=== PATIENT | male | born 1960 | race Caucasian/White ===

== ENCOUNTER 2017-11-26 00:24 | Emergency (ER) | payer OTHER, SELFPAY | END 2017-11-26 01:18 | disposition home or self-care (01) | PROVIDERS: Emergency Provider Emergency Medicine; PCP Family Medicine; Visit Provider Emergency Medicine | DX: S01.01XA Laceration without foreign body of scalp, initial encounter (principal); W19.XXXA Unspecified fall, initial encounter | CPT/HCPCS: 12004; 90471; 99283; 90715 ==

== ENCOUNTER 2019-02-10 09:54 | Emergency (ER) | payer OTHER, SELFPAY ==
[2019-02-10 10:02] VITALS: BP 142/101; PULSE 90; RESP 16; TEMP 36.7; O2SAT 97; BMI 26.6
--- NOTE | 2019-02-10 10:02 | DI.RAD.S_ITS ---
PROCEDURE: XR KNEE LT 3V INDICATIONS: left knee pain TECHNIQUE: 3 views of the knee were acquired. COMPARISON: None. FINDINGS: Bones: No fractures or dislocations. No suspicious bony lesions. Soft tissues: No joint effusion. No suspicious soft tissue calcifications. Prominent prepatellar soft tissue edema is evident. IMPRESSION: 1. No acute left knee fracture. 2. Prominent prepatellar soft tissue edema. Dictated by: Cuong Menjivar M.D. on 02/10/2019 at 9:33 Approved by: Cuong Menjivar M.D. on 02/10/2019 at 9:34
[2019-02-10 10:30] VITALS: BP 126/78; PULSE 78; RESP 14; O2SAT 96
--- NOTE | 2019-02-10 11:19 | ED.LOWEXIN ---
HPI - Extremity Injury (Lower) <MILO Foster - Last Filed: 02/10/19 12:30> General Chief Complaint: Extremity Injury, Lower Stated Complaint: Swollen knee Time Seen by Provider: 02/10/19 11:02 Source: patient and family Mode of arrival: ambulatory Limitations: no limitations History of Present Illness HPI Narrative: The patient is a 58-year-old male current smoker who presents with his . He has a history of bursitis. He presents with a chief complaint of left knee swelling. 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 He states his knee has been hurting increasingly over the past few days and noticed swelling over his kneecap over the past 2 days. states there was slight overlying erythema prior, but none currently. Patient denies any fevers nausea vomiting or diarrhea. He has history of a meniscus injury but not sure which knee. He states he has been golfing recently but does not remember any trauma or falls. He denies any chest pain shortness of breath fever nausea vomiting or diarrhea. Related Data Previous Rx's Medication Instructions Recorded ketorolac 10 mg PO TID PRN #14 tab 02/10/19 Allergies Allergy/AdvReac Type Severity Reaction Status Date / Time Penicillins Allergy Verified 02/10/19 10:02 Review of Systems <MILO Foster - Last Filed: 02/10/19 12:30> Review of Systems GENERAL: Denies chills, fatigue, malaise, fever, sweats. HEENT: Denies sinus pain, ear pain, sore throat, difficulty swallowing, dizziness. RESPIRATORY: Denies dyspnea, cough, wheezing, hemoptysis, sputum. CARDIOVASCULAR: Denies chest pain, palpitations, orthopnea, edema, GASTROINTESTINAL: Denies nausea, vomiting, abdominal pain, diarrhea, constipation, melena. : Denies dysuria, frequency, incontinence, hematuria, urinary retention. MUSCULOSKELETAL: See HPI SKIN: See HPI NEUROLOGIC: Denies weakness, headache, numbness, change in speech, confusion, seizures, incoordination. PSYCHIATRIC: No concerning psychosocial issues. 12 point review of systems is negative except for those stated above PFSH <MILO Foster - Last Filed: 02/10/19 12:30> Medical History (Updated 02/10/19 @ 11:26 by MILO Foster) History of bursitis (Acute) Social History Smoking Status: Current every day smoker Social History Smoking Status: Current every day smoker Exam <MILO Foster - Last Filed: 02/10/19 12:30> Narrative Exam Narrative: GENERAL: This is a well-nourished, well-developed patient, no acute distress HEAD: Atraumatic. Normocephalic. No temporal or scalp tenderness. EYES: Pupils equal round and reactive. Extraocular motions intact. No scleral icterus. No injection or drainage. ENT: Nose without bleeding, purulent drainage or septal hematoma. Throat without erythema, tonsillar hypertrophy or exudate. Uvula midline. Airway patent. CARDIOVASCULAR: Regular rate and rhythm RESPIRATORY: No cough. No increased respiratory effort. No accessory muscle use. GASTROINTESTINAL: Abdomen soft, non-tender, nondistended. No hepato-splenomegaly, or palpable masses. No guarding. EXTREMITIES: Prepatellar swelling noted on the left knee. Negative varus valgus Estella posterior and anterior drawer test. Positive pedal pulse left foot. BACK: Nontender without deformity or crepitance. No flank tenderness. NEURO: AOx3. SKIN: No erythema or ecchymosis noted left knee. Initial Vital Signs Initial Vital Signs: Vital Signs Temperature 98.0 F 02/10/19 10:02 Pulse Rate 90 02/10/19 10:02 Respiratory Rate 16 02/10/19 10:02 Blood Pressure 142/101 H 02/10/19 10:02 Pulse Oximetry 97 02/10/19 10:02 <Divya Stover DO - Last Filed: 02/10/19 19:03> Initial Vital Signs Initial Vital Signs: Vital Signs Temperature 98.0 F 02/10/19 10:02 Pulse Rate 90 02/10/19 10:02 Respiratory Rate 16 02/10/19 10:02 Blood Pressure 142/101 H 02/10/19 10:02 Pulse Oximetry 97 02/10/19 10:02 Procedures <MILO Foster - Last Filed: 02/10/19 12:30> Orthopedic Splinting/Casting Injury #1: Side: left Lower Extremity Injury Location: knee Lower Extremity Immobilizer: Gopal wrap Post splinting neuro exam: intact Post splinting vascular exam: intact Placed by: Nursing Course <MILO Foster - Last Filed: 02/10/19 12:30> Orders Ordered: ED Orders 02/10/19 10:02 XR knee LT 3V Stat Vital Signs - 8 hr 02/10/19 10:02 02/10/19 10:30 Temperature 98.0 F Pulse Rate 90 78 Respiratory Rate 16 14 Blood Pressure 142/101 H Blood Pressure [Left Arm] 126/78 Pulse Oximetry 97 96 <Divya Stover DO - Last Filed: 02/10/19 19:03> Orders Ordered: ED Orders 02/10/19 10:02 XR knee LT 3V Stat Vital Signs - 8 hr 02/10/19 10:02 02/10/19 10:30 Temperature 98.0 F Pulse Rate 90 78 Respiratory Rate 16 14 Blood Pressure 142/101 H Blood Pressure [Left Arm] 126/78 Pulse Oximetry 97 96 MDM - Extremity Injury (Lower) <MILO Foster - Last Filed: 02/10/19 12:30> Imaging Data Knee x-ray: Radiologist's impression: [place] [address] XRay Report Signed Patient: Keith Frazier [facility]#: [id number] : 1960Acct:[id number] Age/Sex: 58 / MDate of Service: 02/10/19 Loc: ED Accession Number: [id number] Procedure: XR knee LT 3V Ordering Provider: Divya Stover D.O. PROCEDURE: XR KNEE LT 3V INDICATIONS: left knee pain TECHNIQUE: 3 views of the knee were acquired. COMPARISON: None. FINDINGS: Bones: No fractures or dislocations. No suspicious bony lesions. Soft tissues: No joint effusion. No suspicious soft tissue calcifications. Prominent prepatellar soft tissue edema is evident. IMPRESSION: 1. No acute left knee fracture. 2. Prominent prepatellar soft tissue edema. Dictated by: Cuong Menjivar M.D. on 02/10/2019 at 9:33 Approved by: Cuong Menjivar M.D. on 02/10/2019 at 9:34 MDM Narrative Medical decision making narrative: The patient is a 58-year-old male who presents with a chief complaint of knee pain. He has no fracture on exam. Exam is consistent with bursitis, which correlates with his history. I discussed at length anti-inflammatories rest Gopal wrap etc. Discussed not working well on knees without any protection. Encouraged follow-up with PCP. Patient state understanding and all questions on discharge. They state they have full contact information for [facility]. Discussed coming back to the ER for any acute concerns. Discharge Plan Departure Patient Disposition: Home Clinical Impression: Bursitis Qualifiers: Bursitis location: knee Knee bursitis location: unspecified Laterality: left Qualified Code(s): M70.52 - Other bursitis of knee, left knee Discharge Date/Time: 02/10/19 11:25 Interventions: ED Discharge Assessment Last Done: 02/10/19 11:25 Instructions: Bursitis (Alternative Therapy), DI for Bursitis Activity Restrictions/Additional Instructions: Your x-ray shows no fracture. Your exam correlates with bursitis. Please continue to apply ice and use anti-inflammatories. I have given you a prescription of Toradol. Please do not combine with other anti-inflammatory such as Aleve. Please follow up with primary care provider. Please come back to emergency department for any acute concerns such as chest pain, shortness of breath. Please monitor for fever, decreased range of motion or other signs of infection. Prescriptions: New ketorolac 10 mg tablet 10 mg PO TID PRN (Reason: pain) Qty: 14 RF: 0 Referrals: Swathi Ware MD [Primary Care Provider] - <Divya Stover DO - Last Filed: 02/10/19 19:03> [facility] Att[facility]: I was immediately available in the department for consultation. This documentation has been reviewed and I agree with assessment and plan. Supervised by Divya Stover DO
--- NOTE | 2019-02-10 11:26 | ED_ITS ---
HPI - Extremity Injury (Lower) <MILO Foster - Last Filed: 02/10/19 12:30> General Chief Complaint: Extremity Injury, Lower Stated Complaint: Swollen knee Time Seen by Provider: 02/10/19 11:02 Source: patient and family Mode of arrival: ambulatory Limitations: no limitations History of Present Illness HPI Narrative: The patient is a 58-year-old male current smoker who presents wit h his . He has a history of bursitis. He presents with a chief complaint of left knee swelling. 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 He states his knee has been hurting increasingly over the past few days and noticed swelling over his kneecap over the past 2 days. states there was slight overlying erythema prior, but none currently. Patient denies any fevers nausea vomiting or diarrhea. He has history of a meniscus injury but not sure which knee. He states he has been golfing recently but does not remember any trauma or falls. He denies any chest pain shortness of breath fever nausea vomiting or diarrhea. Related Data Previous Rx's Medication Instructions Recorded ketorolac 10 mg PO TID PRN #14 tab 02/10/19 Allergies Allergy/AdvReac Type Severity Reaction Status Date / Time Penicillins Allergy Verified 02/10/19 10:02 Review of Systems <MILO Foster - Last Filed: 02/10/19 12:30> Review of Systems GENERAL: Denies chills, fatigue, malaise, fever, sweats. HEENT: Denies sinus pain, ear pain, sore throat, difficulty swallowing, dizziness. RESPIRATORY: Denies dyspnea, cough, wheezing, hemoptysis, sputum. CARDIOVASCULAR: Denies chest pain, palpitations, orthopnea, edema, GASTROINTESTINAL: Denies nausea, vomiting, abdominal pain, diarrhea, constipation, melena. : Denies dysuria, frequency, incontinence, hematuria, urinary retention. MUSCULOSKELETAL: See HPI SKIN: See HPI NEUROLOGIC: Denies weakness, headache, numbness, change in speech, confusion, seizures, incoordination. PSYCHIATRIC: No concerning psychosocial issues. 12 point review of systems is negative except for those stated above PFSH <MILO Foster - Last Filed: 02/10/19 12:30> Medical History (Updated 02/10/19 @ 11:26 by MILO Foster) History of bursitis (Acute) Social History Smoking Status: Current every day smoker Social History Smoking Status: Current every day smoker Exam <MILO Foster - Last Filed: 02/10/19 12:30> Narrative Exam Narrative: GENERAL: This is a well-nourished, well-developed patient, no acute distress HEAD: Atraumatic. Normocephalic. No temporal or scalp tenderness. EYES: Pupils equal round and reactive. Extraocular motions intact. No scleral icterus. No injection or drainage. ENT: Nose without bleeding, purulent drainage or septal hematoma. Throat without erythema, tonsillar hypertrophy or exudate. Uvula midline. Airway patent. CARDIOVASCULAR: Regular rate and rhythm RESPIRATORY: No cough. No increased respiratory effort. No accessory muscle use. GASTROINTESTINAL: Abdomen soft, non-tender, nondistended. No hepato- splenomegaly, or palpable masses. No guarding. EXTREMITIES: Prepatellar swelling noted on the left knee. Negative varus valgus Estella posterior and anterior drawer test. Positive pedal pulse left foot. BACK: Nontender without deformity or crepitance. No flank tenderness. NEURO: AOx3. SKIN: No erythema or ecchymosis noted left knee. Initial Vital Signs Initial Vital Signs: Vital Signs Temperature 98.0 F 02/10/19 10:02 Pulse Rate 90 02/10/19 10:02 Respiratory Rate 16 02/10/19 10:02 Blood Pressure 142/101 H 02/10/19 10:02 Pulse Oximetry 97 02/10/19 10:02 <Divya Stover DO - Last Filed: 02/10/19 19:03> Initial Vital Signs Initial Vital Signs: Vital Signs Temperature 98.0 F 02/10/19 10:02 Pulse Rate 90 02/10/19 10:02 Respiratory Rate 16 02/10/19 10:02 Blood Pressure 142/101 H 02/10/19 10:02 Pulse Oximetry 97 02/10/19 10:02 Procedures <MILO Foster - Last Filed: 02/10/19 12:30> Orthopedic Splinting/Casting Injury #1: Side: left Lower Extremity Injury Location: knee Lower Extremity Immobilizer: Gopal wrap Post splinting neuro exam: intact Post splinting vascular exam: intact Placed by: Nursing Course <MILO Foster - Last Filed: 02/10/19 12:30> Orders Ordered: ED Orders 02/10/19 10:02 XR knee LT 3V Stat Vital Signs - 8 hr 02/10/19 10:02 02/10/19 10:30 Temperature 98.0 F Pulse Rate 90 78 Respiratory Rate 16 14 Blood Pressure 142/101 H Blood Pressure [Left Arm] 126/78 Pulse Oximetry 97 96 <Divya Stover DO - Last Filed: 02/10/19 19:03> Orders Ordered: ED Orders 02/10/19 10:02 XR knee LT 3V Stat Vital Signs - 8 hr 02/10/19 10:02 02/10/19 10:30 Temperature 98.0 F Pulse Rate 90 78 Respiratory Rate 16 14 Blood Pressure 142/101 H Blood Pressure [Left Arm] 126/78 Pulse Oximetry 97 96 MDM - Extremity Injury (Lower) <MILO Foster - Last Filed: 02/10/19 12:30> Imaging Data Knee x-ray: Radiologist's impression: [place] [address] XRay Report Signed Patient: Keith Frazier AMR#: [id number] : 1960Acct:[id number] Age/Sex: 58 / MDate of Service: 02/10/19 Loc: ED Accession Number: [id number] Procedure: XR knee LT 3V Ordering Provider: Divya Stover D.O. PROCEDURE: XR KNEE LT 3V INDICATIONS: left knee pain TECHNIQUE: 3 views of the knee were acquired. COMPARISON: None. FINDINGS: Bones: No fractures or dislocations. No suspicious bony lesions. Soft tissues: No joint effusion. No suspicious soft tissue calcifications. Prominent prepatellar soft tissue edema is evident. IMPRESSION: 1. No acute left knee fracture. 2. Prominent prepatellar soft tissue edema. Dictated by: Cuong Menjivar M.D. on 02/10/2019 at 9:33 Approved by: Cuong Menjivar M.D. on 02/10/2019 at 9:34 MDM Narrative Medical decision making narrative: The patient is a 58-year-old male who presents with a chief complaint of knee pain. He has no fracture on exam. Exam is consistent with bursitis, which correlates with his history. I discussed at length anti-inflammatories rest Gopal wrap etc. Discussed not working well on knees without any protection. Encouraged follow-up with PCP. Patient state understanding and all questions on discharge. They state they have full contact information for [facility]. Discussed coming back to the ER for any acute concerns. Discharge Plan Departure Patient Disposition: Home Clinical Impression: Bursitis Qualifiers: Bursitis location: knee Knee bursitis location: unspecified Laterality: left Qualified Code(s): M70.52 - Other bursitis of knee, left knee Discharge Date/Time: 02/10/19 11:25 Interventions: ED Discharge Assessment Last Done: 02/10/19 11:25 Instructions: Bursitis (Alternative Therapy), DI for Bursitis Activity Restrictions/Additional Instructions: Your x-ray shows no fracture. Your exam correlates with bursitis. Please continue to apply ice and use anti-inflammatories. I have given you a prescription of Toradol. Please do not combine with other anti-inflammatory such as Aleve. Please follow up with primary care provider. Please come back to emergency department for any acute concerns such as chest pain, shortness of breath. Please monitor for fever, decreased range of motion or other signs of infection. Prescriptions: New ketorolac 10 mg tablet 10 mg PO TID PRN (Reason: pain) Qty: 14 RF: 0 Referrals: Swathi Ware MD [Primary Care Provider] - <Divya Stover DO - Last Filed: 02/10/19 19:03> [facility] ED Attending Estefaniature Attestation: I was immediately available in the department for consultation. This documentation has been reviewed and I agree with assessment and plan. Supervised by Divya Stover DO
== END 2019-02-10 11:25 | disposition home or self-care (01) ==
PROVIDERS: Emergency Provider Nurse Practitioner Family; PCP Family Medicine
DX: M71.9 Bursopathy, unspecified (principal)
CPT/HCPCS: 73562; 99282; 99283

== ENCOUNTER 2020-04-24 12:07 | Emergency (ER) | payer OTHER, SELFPAY ==
[2020-04-24 12:11] VITALS: BP 155/86; PULSE 105; RESP 16; TEMP 36.9; O2SAT 99; BMI 24.3
--- NOTE | 2020-04-24 12:33 | DI.RAD.S_ITS ---
PROCEDURE: XR KNEE RT 3V INDICATIONS: right knee pain TECHNIQUE: 3 views of the knee were acquired. COMPARISON: [facility], CR, XR KNEE LT 3V, 02/10/2019, 10:02. FINDINGS: Bones: No fracture. Chondrocalcinosis. Scattered degenerative subchondral sclerosis and spurring. Prepatellar soft tissue swelling. Soft tissues: No joint effusion. No suspicious soft tissue calcifications. IMPRESSION: Prepatellar soft tissue swelling. Chondrocalcinosis If the patient's pain or other symptoms persist, consider further evaluation with MRI Dictated by: Amandeep Carrizales M.D. on 04/24/2020 at 13:05 Approved by: Amandeep Carrizales M.D. on 04/24/2020 at 13:07
[2020-04-24 12:53] LABS: Add Manual Diff / Slide Review NO; Basophils Absolute Auto 100 /uL (0-100); Basophils Percent Auto 0.8 % (0-2); Eosinophils Absolute Auto 100 /uL (0-450); Hematocrit 40.7 % (41-53); Hemoglobin 14.1 g/dL (13.5-17.5); Lymphocytes Absolute Auto 2000 /uL (1100-4500); Lymphocytes Percent Auto 21.3 % (25-40); Mean Corpuscular HGB Conc 34.7 % (30-36); Mean Corpuscular Hemoglobin 32.2 PG (26-34); Mean Corpuscular Volume 92.8 fL (80-100); Monocytes Absolute Auto 700 /uL (0-900); Monocytes Percent Auto 8.1 % (3-14); Neutrophils Absolute Auto 6300 /uL (1500-7000); Neutrophils Percent Auto 68.8 % (50-75); Platelet Count 263 X10^3/uL (150-400); Red Blood Cell Count 4.38 X10^6/uL (4.5-5.9); Red Cell Distribution Width 13.7 % (11.6-14.8); White Blood Cell Count 9.2 X10^3/uL (4.5-11.0)
[2020-04-24 13:03] LABS: Alanine Aminotransferase 20 IU/L (<50); Albumin 4.2 g/dL (3.5-5.0); Albumin Globulin Ratio 1.4 (1.0-2.8); Alkaline Phosphatase 110 U/L (38-126); Aspartate Aminotransferase 24 IU/L (17-59); BUN Creatinine Ratio 11.5 (6-22); Bilirubin Total 0.4 mg/dL (0.2-1.3); Blood Urea Nitrogen 11 mg/dL (9-20); Calcium 8.9 mg/dL (8.4-10.2); Carbon Dioxide 24 mmol/L (22-32); Chloride 106 mmol/L (98-107); Estimated Glomerular Filt Rate > 60.0 mL/min (>60); Globulin 3.1 g/dL (1.7-4.1); Glucose 97 mg/dL (70-100); HEMOLYSIS 33 (0-50); Potassium 4.3 mmol/L (3.4-5.1); Sodium 139 mmol/L (137-145); Total Protein 7.3 g/dL (6.3-8.2)
[2020-04-24] MEDS: LIDOCAINE PATCH 1 EACH ADH..PATCH TOP (14:13)
[2020-04-24 14:50] VITALS: BP 147/96; PULSE 89; RESP 14; O2SAT 98
--- NOTE | 2020-04-24 14:55 | ED.LOWEXIN ---
HPI - Extremity Injury (Lower) <LIDIA Foster - Last Filed: 04/24/20 15:02> General Chief Complaint: Extremity Injury, Lower Stated Complaint: states inflamed knee Time Seen by Provider: 04/24/20 12:10 Source: patient Mode of arrival: Wheelchair Limitations: no limitations History of Present Illness HPI Narrative: The patient is a 59-year-old male current everyday smoker with a history of bursitis who presents with a chief complaint of a ?Inflamed knee. He states that his knee was inflamed about 6 weeks ago, was just feeling better and then he does some work while kneeling and got worse. He has a history of bursitis in his right left knee, today his right knee is acting up. He denies any fevers nausea vomiting or diarrhea. He took some of his friends meloxicam yesterday and this morning. He denies any overlying redness, states that the swelling is out of his knee. His is concerned about ?something else going on due to the fact that his knee was swollen, got slightly improved and then worse again. Related Data Previous Rx's Medication Instructions Recorded ketorolac 10 mg PO TID PRN #14 tab 04/24/20 lidocaine 1 patch TOP DAILY PRN #15 each 04/24/20 Allergies Allergy/AdvReac Type Severity Reaction Status Date / Time Penicillins Allergy Verified 04/24/20 12:20 Review of Systems <LIDIA Foster - Last Filed: 04/24/20 15:02> Review of Systems Narrative: GENERAL: Denies chills, fatigue, malaise, fever, sweats. HEENT: Denies sinus pain, ear pain, sore throat, difficulty swallowing, dizziness. RESPIRATORY: Denies dyspnea, cough, wheezing, hemoptysis, sputum. CARDIOVASCULAR: Denies chest pain, palpitations, orthopnea, edema, GASTROINTESTINAL: Denies nausea, vomiting, abdominal pain, diarrhea, constipation, melena. : Denies dysuria, frequency, incontinence, hematuria, urinary retention. MUSCULOSKELETAL: See HPI SKIN: See HPI NEUROLOGIC: Denies weakness, headache, numbness, change in speech, confusion, seizures, incoordination. PSYCHIATRIC: No concerning psychosocial issues. 12 point review of systems is negative except for those stated above Patient History <LIDIA Foster - Last Filed: 04/24/20 15:02> Medical History History of bursitis (Acute) Social History Smoking Status: Current every day smoker Smoking Status: Current every day smoker alcohol intake frequency: 3 or more drinks per day Substance Use Type: does not use Exam <MILO Foster - Last Filed: 04/24/20 15:02> Narrative Exam Narrative: GENERAL: This is a well-nourished, well-developed patient, in no acute distress HEAD: Atraumatic. Normocephalic. No temporal or scalp tenderness. EYES: Pupils equal round and reactive. Extraocular motions intact. No scleral icterus. No injection or drainage. ENT: Nose without bleeding, purulent drainage or septal hematoma. Wearing a mask. Airway patent. NECK: Trachea midline. No JVD or lymphadenopathy. Supple, nontender, no meningeal signs. CARDIOVASCULAR: Regular rate and rhythm EXTREMITIES: Prepatellar swelling noted right knee. Positive right pedal pulses. No overlying erythema or palpable warmth. Able to flex to 90? and extend knee fully. BACK: Nontender without deformity or crepitance. No flank tenderness. NEURO: AOx3. SKIN: Erythema, no warmth to palpation appearing skin is appropriate for ethnicity. Initial Vital Signs Initial Vital Signs: Vital Signs Temperature 98.5 F 04/24/20 12:11 Pulse Rate 105 H 04/24/20 12:11 Respiratory Rate 16 04/24/20 12:11 Blood Pressure 155/86 H 04/24/20 12:11 Pulse Oximetry 99 04/24/20 12:11 <Aneta Martinez DO - Last Filed: 04/27/20 10:56> Initial Vital Signs Initial Vital Signs: Vital Signs Temperature 98.5 F 04/24/20 12:11 Pulse Rate 105 H 04/24/20 12:11 Respiratory Rate 16 04/24/20 12:11 Blood Pressure 155/86 H 04/24/20 12:11 Pulse Oximetry 99 04/24/20 12:11 Procedures <MILO Foster - Last Filed: 04/24/20 15:02> Orthopedic Splinting/Casting Injury #1: Side: right Lower Extremity Injury Location: knee Lower Extremity Immobilizer: Gopal wrap Post splinting vascular exam: intact Placed by: Nursing Scores <MILO Foster - Last Filed: 04/24/20 15:02> GCS Debbi coma scale eye opening: Spontaneous Debbi coma scale verbal response: Orientated Debbi coma scale motor response: Obey commands Papillion coma scale total score: 15 Course <MILO Foster - Last Filed: 04/24/20 15:02> Orders Ordered: Discontinued Medications Lidocaine (Lidoderm) 1 each TOP NOW ONE Stop: 04/24/20 14:02 Last Admin: 04/24/20 14:13 Dose: 1 each Documented by: DIANNEE Lidocaine (Lidoderm (Remove Patch)) 1 each TOP BEDTIME BETHANY Vital Signs Vital signs: Vital Signs - 8 hr 04/24/20 12:11 04/24/20 14:50 Temperature 98.5 F Pulse Rate 105 H 89 Respiratory Rate 16 14 Blood Pressure 155/86 H 147/96 H Pulse Oximetry 99 98 <Aneta Martinez DO - Last Filed: 04/27/20 10:56> Orders Ordered: Discontinued Medications Lidocaine (Lidoderm) 1 each TOP NOW ONE Stop: 04/24/20 14:02 Last Admin: 04/24/20 14:13 Dose: 1 each Documented by: DIANNEE Lidocaine (Lidoderm (Remove Patch)) 1 each TOP BEDTIME BETHANY Vital Signs Vital signs: Vital Signs - 8 hr 04/24/20 12:11 04/24/20 14:50 Temperature 98.5 F Pulse Rate 105 H 89 Respiratory Rate 16 14 Blood Pressure 155/86 H 147/96 H Pulse Oximetry 99 98 MDM - Extremity Injury (Lower) <MILO Foster - Last Filed: 04/24/20 15:02> Lab Data Result diagrams: 04/24/20 12:45 04/24/20 12:45 Labs: Lab Results 04/24/20 04/24/20 Range/Units 12:45 12:45 WBC 9.2 (4.5-11.0) X10^3/uL RBC 4.38 L (4.5-5.9) X10^6/uL Hgb 14.1 (13.5-17.5) g/dL Hct 40.7 L (41-53) % MCV 92.8 (80-100) fL MCH 32.2 (26-34) PG MCHC 34.7 (30-36) % RDW 13.7 (11.6-14.8) % Plt Count 263 (150-400) X10^3/uL Neut % (Auto) 68.8 (50-75) % Lymph % (Auto) 21.3 L (25-40) % Ventura % (Auto) 8.1 (3-14) % Eos % (Auto) 1.0 L (2-4) % Baso % (Auto) 0.8 (0-2) % Neut # (Auto) 6300 (8854-0602) /uL Lymph # (Auto) 2000 (2644-4621) /uL Ventura # (Auto) 700 (0-900) /uL Eos # (Auto) 100 (0-450) /uL Baso # (Auto) 100 (0-100) /uL Sodium 139 (137-145) mmol/L Potassium 4.3 (3.4-5.1) mmol/L Chloride 106 (98-107) mmol/L Carbon Dioxide 24 (22-32) mmol/L BUN 11 (9-20) mg/dL Creatinine 0.96 (0.66-1.25) mg/dL Estimated GFR > 60.0 (>60) mL/min BUN/Creatinine Ratio 11.5 (6-22) Glucose 97 (70-100) mg/dL Calcium 8.9 (8.4-10.2) mg/dL Total Bilirubin 0.4 (0.2-1.3) mg/dL AST 24 (17-59) IU/L ALT 20 (<50) IU/L Alkaline Phosphatase 110 (38-126) U/L Total Protein 7.3 (6.3-8.2) g/dL Albumin 4.2 (3.5-5.0) g/dL Globulin 3.1 (1.7-4.1) g/dL Albumin/Globulin Ratio 1.4 (1.0-2.8) Imaging Data Extremity x-ray #1: Radiologist's Impression: [address] [place] [id number] XRay Report Signed Patient: Keith Frazier [facility]#: [id number] : 1960Acct:[id number] Age/Sex: 59 / MDate of Service: 04/24/20 Loc: ED Accession Number: [id number] Procedure: XR knee RT 3V Ordering Provider: Divya Obrien PROCEDURE: XR KNEE RT 3V INDICATIONS: right knee pain TECHNIQUE: 3 views of the knee were acquired. COMPARISON: Located Within [facility], CR, XR KNEE LT 3V, 02/10/2019, 10:02. FINDINGS: Bones: No fracture. Chondrocalcinosis. Scattered degenerative subchondral sclerosis and spurring. Prepatellar soft tissue swelling. Soft tissues: No joint effusion. No suspicious soft tissue calcifications. IMPRESSION: Prepatellar soft tissue swelling. Chondrocalcinosis If the patient's pain or other symptoms persist, consider further evaluation with MRI Dictated by: Amandeep Carrizales M.D. on 04/24/2020 at 13:05 Approved by: Amandeep Carrizales M.D. on 04/24/2020 at 13:07 [facility] Narrative Medical decision making narrative: The patient is a 59-year-old male who presents with a chief complaint of his swelling of his right knee. This has been episodic for several years, got worse yesterday. His exam correlates with bursitis, which is correlated with the fact that he has no overlying erythema, no fever vomiting diarrhea or signs of systemic illness. He is very well and nontoxic appearing, has no leukocytosis on labs. He was given a lidocaine patch in Gopal wrap in the emergency department. Did give prescription of Toradol, patient took meloxicam was morning so we will hold off on emergency department dose. Given that patient drinks at least 3 alcohol drinks a day, will hold off on narcotics at this point time. Encouraged follow-up with primary care provider in the next 48-72 hours as well as come back to the emergency department for any acute concerns. Discussed monitor for signs of infection including fever, vomiting diarrhea etcetera. Patient have no questions or concerns upon discharge and state understanding of return precautions as well as follow-up care. <Aneta Martinez, - Last Filed: 04/27/20 10:56> Lab Data Labs: Lab Results 04/24/20 04/24/20 Range/Units 12:45 12:45 WBC 9.2 (4.5-11.0) X10^3/uL RBC 4.38 L (4.5-5.9) X10^6/uL Hgb 14.1 (13.5-17.5) g/dL Hct 40.7 L (41-53) % MCV 92.8 (80-100) fL MCH 32.2 (26-34) PG MCHC 34.7 (30-36) % RDW 13.7 (11.6-14.8) % Plt Count 263 (150-400) X10^3/uL Neut % (Auto) 68.8 (50-75) % Lymph % (Auto) 21.3 L (25-40) % Ventura % (Auto) 8.1 (3-14) % Eos % (Auto) 1.0 L (2-4) % Baso % (Auto) 0.8 (0-2) % Neut # (Auto) 6300 (0248-5245) /uL Lymph # (Auto) 2000 (4513-2738) /uL Ventura # (Auto) 700 (0-900) /uL Eos # (Auto) 100 (0-450) /uL Baso # (Auto) 100 (0-100) /uL Sodium 139 (137-145) mmol/L Potassium 4.3 (3.4-5.1) mmol/L Chloride 106 (98-107) mmol/L Carbon Dioxide 24 (22-32) mmol/L BUN 11 (9-20) mg/dL Creatinine 0.96 (0.66-1.25) mg/dL Estimated GFR > 60.0 (>60) mL/min BUN/Creatinine Ratio 11.5 (6-22) Glucose 97 (70-100) mg/dL Calcium 8.9 (8.4-10.2) mg/dL Total Bilirubin 0.4 (0.2-1.3) mg/dL AST 24 (17-59) IU/L ALT 20 (<50) IU/L Alkaline Phosphatase 110 (38-126) U/L Total Protein 7.3 (6.3-8.2) g/dL Albumin 4.2 (3.5-5.0) g/dL Globulin 3.1 (1.7-4.1) g/dL Albumin/Globulin Ratio 1.4 (1.0-2.8) Discharge Plan Departure Patient Disposition: Home Clinical Impression: Acute knee pain Qualifiers: Laterality: right Qualified Code(s): M25.561 - Pain in right knee Bursitis Qualifiers: Bursitis location: knee Knee bursitis location: unspecified Laterality: right Qualified Code(s): M70.51 - Other bursitis of knee, right knee Discharge Date/Time: 04/24/20 15:00 Instructions: Bursitis (Alternative Therapy), DI for Bursitis, How To Perform RICE (Rest, Ice, Compress, Elevate), DI for Knee Pain Activity Restrictions/Additional Instructions: Thank you for trusting us with your care today. As I discussed, your x-ray shows no acute fracture. This does not rule out a soft tissue injury such as a ligament or tendon injury. It is important that you follow up with primary care provider, especially if worsening or no improvement. There can be fractures that did not show up on initial x-ray. I also sent 2 prescriptions to [facility] in [place]. This includes ketorolac or Toradol and a lidocaine patch. I have given you a prescription of Toradol. This is an NSAID. Do not combine it with other NSAIDs such as Aleve or ibuprofen. I suggest taking it with some food, as it can irritate your stomach. Please do not kneel as this can increase pressure on your knees, prolonging her condition. Please follow-up with primary care provider in the next 48-72 hours. Please monitor for overlying redness, fevers muscle aches chills and signs of systemic illness. Please follow up immediately if these occur. Please come back to emergency department for any acute concerns. Prescriptions: New lidocaine 5 % adhesive patch,medicated 1 patch TOP DAILY PRN (Reason: pain ) Qty: 15 RF: 0 ketorolac 10 mg tablet 10 mg PO TID PRN (Reason: pain) Qty: 14 RF: 0 Referrals: Swathi Ware MD [Primary Care Provider] - Rupinder Danielle DO [Non-Staff] - <Aneta Martinez DO - Last Filed: 04/27/20 10:56> Cosign ED Attending Estefaniature Attestation: I was immediately available in the department for consultation. Documentation has been reviewed. I agree with assessment and plan.
== END 2020-04-24 15:00 | disposition home or self-care (01) ==
PROVIDERS: Emergency Provider Nurse Practitioner Family; PCP Family Medicine
DX: M25.561 Pain in right knee (principal); M70.51 Other bursitis of knee, right knee
CPT/HCPCS: 36415; 73562; 80053; 85025; 99284

== ENCOUNTER → 2023-09-20 15:49 | Outpatient (CLI) | payer OTHER, SELFPAY ==
--- NOTE | 2023-09-20 15:51 | DI.RAD.S_ITS ---
PROCEDURE: XR WRIST RT MIN 3V INDICATIONS: Right wrist injury TECHNIQUE: 4 views of the wrist were acquired. COMPARISON: [facility], WRIST MINIMUM 3 VIEWS RIGHT, 02/17/2012, 22:32. [facility], HAND 3V RIGHT, 02/17/2012, 22:32. FINDINGS: Bones: No fractures or dislocations. No suspicious bony lesions. Soft tissues: No suspicious soft tissue calcifications. IMPRESSION: No definite radiographic abnormality. If pain persists with conservative management, consider repeat plain films or cross sectional imaging such as CT or MRI for further assessment. Dictated by: Peter HERNÁNDEZ Interpreted: Go Vazquez MD on 09/20/2023 at 16:14 Transcribed by: VAIBHAV on 09/20/2023 at 16:15 Approved by: Go Vazquez M.D. on 09/20/2023 at 16:53
== END ==
PROVIDERS: PCP Family Medicine; Referring Provider Nurse Practitioner Family; Visit Provider Nurse Practitioner Family
DX: S69.91XA Unspecified injury of right wrist, hand and finger(s), initial encounter (principal); X58.XXXA Exposure to other specified factors, initial encounter
CPT/HCPCS: 73110

== ENCOUNTER → 2024-09-25 08:34 | Outpatient (CLI) | payer OTHER, SELFPAY ==
[2024-09-25 09:34] LABS: Add Manual Diff / Slide Review NO; Basophils Absolute Auto 100 /uL (0-100); Basophils Percent Auto 0.7 % (0-2); Eosinophils Absolute Auto 100 /uL (0-450); Eosinophils Percent Auto 1.1 % (2-4); Hematocrit 42.2 % (41-53); Hemoglobin 14.2 g/dL (13.5-17.5); Lymphocytes Absolute Auto 2300 /uL (1100-4500); Lymphocytes Percent Auto 26.1 % (25-40); Mean Corpuscular HGB Conc 33.6 % (30-36); Mean Corpuscular Hemoglobin 30.5 PG (26-34); Mean Corpuscular Volume 90.8 fL (80-100); Monocytes Absolute Auto 600 /uL (0-900); Monocytes Percent Auto 7.5 % (3-14); Neutrophils Absolute Auto 5600 /uL (1500-7000); Neutrophils Percent Auto 64.6 % (50-75); Platelet Count 328 X10^3/uL (150-400); Red Blood Cell Count 4.65 X10^6/uL (4.5-5.9); Red Cell Distribution Width 13.6 % (11.6-14.8); White Blood Cell Count 8.6 X10^3/uL (4.5-11.0)
[2024-09-25 09:41] LABS: Hemoglobin A1C% w Est Avg Glu 5.6 % (4.0-6.0)
[2024-09-25 09:45] LABS: Alanine Aminotransferase 15 IU/L (<50); Albumin 4.4 g/dL (3.5-5.0); Albumin Globulin Ratio 1.6 (1.0-2.8); Alkaline Phosphatase 106 U/L (38-126); Aspartate Aminotransferase 18 IU/L (17-59); BUN Creatinine Ratio 18.9 (6-22); Bilirubin Total 0.7 mg/dL (0.2-1.3); Blood Urea Nitrogen 21 mg/dL (9-20); Calcium 9.5 mg/dL (8.4-10.2); Carbon Dioxide 26 mmol/L (22-32); Chloride 105 mmol/L (98-107); Cholesterol 229 mg/dL (140-199); Estimated Glomerular Filt Rate > 60 mL/min (>60); Globulin 2.7 g/dL (1.7-4.1); Glucose 111 mg/dL (80-110); HDL Cholesterol 36 mg/dL (40-60); HEMOLYSIS < 15 (0-50); LDL Cholesterol Calculated 169 mg/dL (<100); Potassium 4.5 mmol/L (3.4-5.1); Sodium 140 mmol/L (137-145); Total Protein 7.1 g/dL (6.3-8.2); Triglycerides 120 mg/dL (35-150)
== END ==
PROVIDERS: PCP Family Medicine; Referring Provider Family Medicine; Visit Provider Family Medicine
DX: Z00.00 Encounter for general adult medical examination without abnormal findings (principal); Z68.26 Body mass index [BMI] 26.0-26.9, adult; Z76.89 Persons encountering health services in other specified circumstances; Z13.220 Encounter for screening for lipoid disorders; Z02.71 Encounter for disability determination; Z13.1 Encounter for screening for diabetes mellitus
CPT/HCPCS: 36415; 80053; 80061; 83036; 85025

== ENCOUNTER 2024-11-12 09:49 | Day surgery (SDC) | payer OTHER, SELFPAY ==
--- NOTE | 2024-11-12 10:02 | P.HP_ITS ---
History of Present Illness History of Present Illness Date Patient Seen: 11/12/24 Time Patient Seen: 10:03 Chief complaint: Colonoscopy Narrative: 64-year-old white male, last colonoscopy was normal 10-15 years ago. No changes in health. [facility], LATER [facility] Medical History Fall Scalp laceration History of bursitis Social History Smoking Status: Current every day smoker (Start in 1974 off and on.) Meds Home Medications and Allergies Home Medications Medication Instructions Recorded Confirmed Type sodium,potassium,mag sulfates 17.5 See Rx Instructions PO .COMPLEX 10/11/24 10/23/24 Rx gram-3.13 gram-1.6 gram oral soln #354 mL (Suprep Bowel Prep Kit) Allergies Allergy/AdvReac Type Severity Reaction Status Date / Time Penicillins Allergy rash/bliste Verified 10/23/24 12:07 rs Review of Systems Review of Systems ROS: Yes All systems reviewed with the patient and are negative except as otherwise documented Exam Narrative Exam Narrative: Gen: NAD, sitting comfortably in bed, appears well HEENT: Sclera are anicteric, head is normocephalic and atraumatic, trachea is midline. CV: RRR, no JVD Resp: clear to auscultation bilaterally, equal chest wall movement bilaterally Abd: soft, nontender, normoactive bowel sounds Ext: no edema, full range of motion Neuro: Cranial nerves II-XII grossly intact, no focal deficits Skin: No erythema or ecchymosis Assessment & Plan Assessment and plan (1) Colon cancer screening: Status: Acute Assessment & Plan narrative: Patient presents for colonoscopy Risks, benefits, alternatives to colonoscopy explained, including but not limited to bowel perforation or other serious complication requiring surgery at less than 1 in 5000 colonoscopies, abdominal pain, cramping or bleeding and less than 1% of colonoscopies, and the chances that we find a diagnosis that would require further intervention of about 2%. Patient agrees to proceed. Time-Based Coding :: [TOTAL MINUTES] spent with patient and on the chart (including review of chart, obtaining history, exam, reviewing outside data, placing orders, documenting exam and treatment plan, and counseling patient) on [DATE]. PROFEE C D Stripper Document charge(s): No
[2024-11-12] MEDS: LACTATED RINGERS 1,000 ML 100 ML IV (10:12)
[2024-11-12 10:18] VITALS: BP 128/74; PULSE 72; RESP 16; TEMP 36.2; O2SAT 99
--- NOTE | 2024-11-12 10:34 | PM.OP.COLON ---
Operative Date/Time/Diagnoses Date of procedure: 11/12/24 Time of procedure: 10:35 Pre-op diagnosis: Colon screening Post-op diagnosis: other (Diverticulosis, internal hemorrhoids) Procedure & Clinicians Study performed: Colonoscopy Same procedure as scheduled: Yes Indications: Colon cancer screening Surgeon: Enoch Bragg Procedure Notes SCOAP/Timeout: Performed Procedure in detail: Time-out was performed. Mac was induced. Patient was placed in left lateral decubitus position. The perineum was inspected without any gross abnormality. Lubricated pediatric colonoscope was inserted and advanced to the cecum. The terminal ileum was intubated. The colonoscope was withdrawn slowly inspecting the circumference of the colon. Extensive sigmoid diverticulosis was noted. Very small polyps may have been missed, prep quality was adequate. Retroflexed view of the rectum showed small, non prolapsed nonbleeding internal hemorrhoids. The scope was withdrawn the patient was taken to PACU in good condition. Scope withdrawal time: 7 Findings: divertiulosis Specimen(s): none sent Complications: none Impression: Diverticulosis Post-procedure Recommendations: Colonoscopy in 10 years Follow up: as needed Disposition: PACU
[2024-11-12 10:36] VITALS: BP 96/60; PULSE 76; RESP 12; TEMP 36.8; O2SAT 94
[2024-11-12 10:41] VITALS: BP 88/58; PULSE 74; RESP 14; O2SAT 94
[2024-11-12 10:46] VITALS: BP 90/65; PULSE 75; RESP 16; O2SAT 95
[2024-11-12 10:49] VITALS: BP 99/68; PULSE 75; RESP 18; TEMP 36.7; O2SAT 95
== END 2024-11-12 11:13 | disposition home or self-care (01) ==
PROVIDERS: PCP Family Medicine; Referring Provider Surgery; Visit Provider Surgery
PROC: 0DJD8ZZ Inspection of Lower Intestinal Tract, Via Natural or Artificial Opening Endoscopic (ICD-10-PCS; CPT 45378; principal; 2024-11-12 10:30)
DX: Z12.11 Encounter for screening for malignant neoplasm of colon (principal); F17.210 Nicotine dependence, cigarettes, uncomplicated; K57.30 Diverticulosis of large intestine without perforation or abscess without bleeding; K64.8 Other hemorrhoids
CPT/HCPCS: 45378; J2704

== ENCOUNTER 2024-11-24 12:06 | Emergency (ER) | payer OTHER, SELFPAY ==
[2024-11-24 12:28] VITALS: BP 120/68; PULSE 82; RESP 16; TEMP 36.6; O2SAT 99; BMI 26.6
--- NOTE | 2024-11-24 12:32 | DI.RAD.S_ITS ---
PROCEDURE: XR FOOT LT MIN 3V INDICATIONS: foot pain, no trauma TECHNIQUE: 3 views of the foot were acquired. COMPARISON: None. FINDINGS: Bones: No fractures or dislocations. No suspicious bony lesions. Bipartite hallux sesamoid. Accessory os trigonum. Soft tissues: No tibiotalar joint effusion. Achilles tendon appears normal. IMPRESSION: No acute bony abnormality. Dictated by: Yousuf Mcnulty M.D. on 11/24/2024 at 12:39 Approved by: Yousuf Mcnulty M.D. on 11/24/2024 at 12:40
--- NOTE | 2024-11-24 14:09 | ED_ITS ---
HPI - Extremity Injury (Lower) General Chief Complaint: Extremity Injury, Lower Stated Complaint: Left foot pain , hard time standing Time Seen by Provider: 11/24/24 14:09 Source: patient, RN notes reviewed and old records reviewed Limitations: no limitations History of Present Illness HPI Narrative: 64-year-old male no reported medical issues complaint of left foot pain for the past week. Patient states his massaged with the other night which was helpful. He states it is worse after playing golf yesterday. He does not recall any injuries or trauma. He does walk and move about quite a bit for his job. Patient states it is over the dorsum of the foot kind of over the talus and 3rd and 4th metatarsal region. He does not really appreciate any swelling no warmth no erythema or other skin changes. No ecchymosis. It is painful particularly with plantar flexion, somewhat with dorsiflexion. Patient does not have any bony tenderness on exam but notes occasionally we will be uncomfortable if he pokes it certain areas. He notes that even now it feels little bit better than it did earlier this morning. He was trying to leave without much improvement. He states no daily medications. He does follow with a physician regularly. Does use tobacco, alcohol daily, no recreational drugs. He was accompanied by his . No history of prior injuries to that area no prior surgeries, no prior gout. Related Data Previous Rx's Medication Instructions Recorded sodium,potassium,mag sulfates 17.5 See Rx Instructions PO .COMPLEX 10/11/24 gram-3.13 gram-1.6 gram oral soln #354 mL (Suprep Bowel Prep Kit) tramadol 50 mg tablet 50 mg PO Q6H PRN pain #7 tabs 11/24/24 Allergies Allergy/AdvReac Type Severity Reaction Status Date / Time Penicillins Allergy rash/bliste Verified 10/23/24 12:07 rs Review of Systems Review of Systems ROS Unobtainable: All systems reviewed & are unremarkable except as noted in HPI and below Patient History Medical History Fall Scalp laceration History of bursitis Social History alcohol intake: former alcohol intake frequency: 3 or more drinks per day Exam Narrative Exam Narrative: GENERAL: Alert and oriented x three, male in mild distress HEENT: Head normocephalic, atraumatic, EOMI, pupils reactive, face symmetric, moist mucous membranes NECK: Supple, full range of motion EXTREMITIES: Normal range of motion, no clubbing or edema. Neurovascularly intact, no bony tenderness. Patient is able to ambulate but appears little bit uncomfortable. There was possibly some scant swelling over the dorsum. There was no ecchymosis, no warmth or erythema. There was no bogginess to the skin induration or signs of infection. Patient does not have any bony tenderness of the left knee, lower leg, calf, foot ankle or bones. Sensation intact to light touch throughout. 2+ dorsalis pedis. Comparison foot is not more swollen than his alternate. NEUROLOGICAL: Cranial nerves II through XII grossly intact. Moving all extremities SKIN: Warm, dry, no petechiae, no rashes or lesions. Initial Vital Signs Initial Vital Signs: Vital Signs Temperature 97.9 F 11/24/24 12:28 Pulse Rate 82 11/24/24 12:28 Respiratory Rate 16 11/24/24 12:28 Blood Pressure 120/68 11/24/24 12:28 Pulse Oximetry 99 11/24/24 12:28 Oxygen Delivery Method Room Air 11/24/24 12:28 Course Orders Ordered: ED Orders 11/24/24 12:32 XR foot LT min 3V Stat Vital Signs Vital signs: Vital Signs - 8 hr 11/24/24 12:28 Temperature 97.9 F Pulse Rate 82 Respiratory Rate 16 Blood Pressure 120/68 Pulse Oximetry 99 Oxygen Delivery Method Room Air MDM - Extremity Injury (Lower) MDM Narrative Medical decision making narrative: Left foot x-ray shows no acute bony abnormality. 64-year-old male with no known trauma who comes in with complaint of pain and discomfort over the dorsum of his left foot particularly with plantar fraction any ambulation. Patient is fairly physically active he ambulates a lot at work he went golfing yesterday which seemed to worsen his symptoms he was had about a week of symptoms but does not recall any trauma or injuries. There was no warmth erythema changes consistent with cellulitis, gout or other acute process. I suspect more musculoskeletal based on exam. Possibly sprain or strain. Discussed return precautions. Follow up in the next 7-10 days for repeat imaging if persistent. We will place patient in ortho shoe and toe-touch weight-bearing with crutches as tolerated for potential occult fracture. Discussed with the patient if symptoms are completely resolved he can return to his normal activities. Discharge Plan Departure Patient Disposition: Home Clinical Impression: Strain of foot, left Instructions: DI for Foot Sprain Activity Restrictions/Additional Instructions: Follow up with your physician in the next 7-10 days for recheck if your symptoms are not resolving. You can take Aleve and/or acetaminophen up to a 1000 mg every 6 hours as needed for pain. If inadequate you can take tramadol 1 tablet every 6 hours as needed. This medication can make you sleepy do not drive, perform hazardous activities or make any major decisions while taking it. This medication will make you constipated please take a stool softener once to twice daily until stools are soft and regular. Prescription sent to [facility] in [place]. You may weightbear as tolerated. Use crutches as needed. The ortho she was splint, continue to wear this if you are having symptoms. Splint Care: Keep splint clean and dry. Elevated affected body part to decrease swelling. OK to use ice pack on the affected body part. Use for 15-20 minutes each time, for 5-6x per day. If you develop worsening pain, numbness, tingling, discoloration of the affected body part, adjust the ortho shoe, and either see your doctor for an urgent re-assessment, or return to the Emergency Department. Return to the Emergency Department for any new or worsening symptoms. Prescriptions: New tramadol 50 mg tablet 50 mg PO Q6H PRN (Reason: pain) Qty: 7 0RF No Action sodium,potassium,mag sulfates [Suprep Bowel Prep Kit] 17.5-3.13-1.6 gram recon soln See Rx Instructions PO .COMPLEX Qty: 354 0RF Rx Instructions: take as directed by Physician Referrals: Robyn Hernandez DO [Primary Care Provider] - Stand Alone Forms: Patient Portal/API/Survey, Work Release Note
== END 2024-11-24 14:23 | disposition home or self-care (01) ==
PROVIDERS: Emergency Provider Emergency Medicine; PCP Family Medicine
DX: S96.912A Strain of unspecified muscle and tendon at ankle and foot level, left foot, initial encounter (principal); X58.XXXA Exposure to other specified factors, initial encounter
CPT/HCPCS: 29515; 73630; 99282; 99283